=== PATIENT | female | born 1935 | race Asian ===

== ENCOUNTER 2018-01-02 00:56 | Emergency (ER) | payer OTHER ==
[2018-01-02 03:40] VITALS: BP 188/77
== END 2018-01-02 03:40 | disposition home or self-care (01) ==
LOC: ED 00:56
DX: T78.40XA Allergy, unspecified, initial encounter (principal); X58.XXXA Exposure to other specified factors, initial encounter; I10 Essential (primary) hypertension
CPT/HCPCS: J7512; Q0163

== ENCOUNTER 2018-03-29 21:44 | Emergency (ER) | payer OTHER ==
[~2018-03-29] VITALS: Ht 149.9 cm; Wt 56.2 kg
[2018-03-29 22:20] VITALS: Ht 149.9 cm; Wt 56.2 kg
[2018-03-29 23:21] VITALS: BP 186/89
== END 2018-03-29 23:21 | disposition home or self-care (01) ==
LOC: ED 21:44
DX: H60.92 Unspecified otitis externa, left ear (principal)
CPT/HCPCS: J1885